=== PATIENT | female | born 1995 | race African-American/Black ===

== ENCOUNTER 2018-11-28 13:44 | Emergency (ER) | payer OTHER ==
[2018-11-28] MEDS ORDERED: prenatal PO (13:58)
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
[2018-11-28 16:37] VITALS: BP 115/72
== END 2018-11-28 16:41 | disposition home or self-care (01) ==
LOC: M ED 13:44 → EDBD 13:44 → M ED 16:41
DX: Z04.1 Encounter for examination and observation following transport accident (principal); Z3A.14 14 weeks gestation of pregnancy; Z79.899 Other long term (current) drug therapy